=== PATIENT | male | born 1950 | race Caucasian/White ===

== ENCOUNTER → 2018-10-10 | Outpatient (CLI) | payer MEDICARE ==
--- NOTE | 2018-10-10 14:26 | REP ---
CERVICAL SPINE SERIES: Seven views of the cervical spine are performed. There is no compression identified. I cannot see the T1 vertebral body and its relationship to C7. There is slight anterior listhesis of C6 on 7 which is fixed with flexion and extension. There is mild spurring of C4-C7 with mild disc space narrowing and subchondral sclerosis at C5-6 and C6-7. There is mild posterior osteophytic ridging at C5-6 and C6-7. There is diffuse narrowing and sclerosis of the posterior facet joints. I do not see significant neural foraminal narrowing radiographically. Vascular calcifications are seen bilaterally in the soft tissues of the neck. IMPRESSION: Degenerative changes as discussed in detail above. Further evaluation may be made with MRI. Electronically Signed by Korey Amin MD 10/12/2018 10:20 A
== END ==
LOC: M SMT 13:13
PROVIDERS: ATTEND Physician Assistant Medical
DX: M50.322 Other cervical disc degeneration at C5-C6 level (principal); M50.323 Other cervical disc degeneration at C6-C7 level; G62.9 Polyneuropathy, unspecified
CPT/HCPCS: 72052; G0463

== ENCOUNTER → 2018-10-15 | Outpatient (REF) | payer MEDICARE ==
[~2018-10-15] MED LIST: ASPI81TA85 PO; COQ-100C5 PO; CRES10TA PO; FLOM0.4C39 PO; JANU100T PO; JARD1TAB PO; LISI-542 PO; METF500T13 PO; NORT10CA2 PO; VIAG100T PO; XALA0.007 OU
[2018-10-15 10:03] LABS: BASO % 0.4 % (0.0-1.0); EOS # 0.1 10^3/uL (0.0-0.50); EOS % 2.3 % (0.0-3.0); HEMATOCRIT 51.5 % (42.0-52.0); HEMOGLOBIN 17.7 g/dl (13.5-17.5); LYMPH # 1.5 10^3/uL (1.5-4.5); LYMPH % 26.5 % (24.0-44.0); MEAN CORPUSCULAR HEMOGLOBIN 33.3 pg (27.0-33.0); MEAN CORPUSCULAR HGB CONC 34.4 g/dl (32.0-36.5); MEAN CORPUSCULAR VOLUME 96.8 fl (80.0-96.0); MONO # 0.6 10^3/uL (0.0-0.8); NEUTROPHILS # 3.4 10^3/uL (1.8-7.7); NEUTROPHILS % 60.4 % (36.0-66.0); PLATELET COUNT, AUTOMATED 128 10^3/uL (150-450); RED BLOOD COUNT 5.32 10^6/uL (4.30-6.10); WHITE BLOOD COUNT 5.6 10^3/uL (4.0-10.0)
[2018-10-15 10:35] LABS: ALBUMIN 3.8 GM/DL (3.2-5.2); ALT/SGPT 23 U/L (12-78); BILIRUBIN,TOTAL 0.9 MG/DL (0.2-1.0); BLOOD UREA NITROGEN 27 MG/DL (7-18); CALCIUM LEVEL 8.4 MG/DL (8.8-10.2); CARBON DIOXIDE LEVEL 28 MEQ/L (21-32); CHLORIDE LEVEL 106 MEQ/L (98-107); CHOLESTEROL LEVEL 129 MG/DL (<200); CHOLESTEROL RISK RATIO 3.794 (<5); FREE T4 1.14 NG/DL (0.76-1.46); GLOMERULAR FILTRATION RATE > 60.0 (>49); GLUCOSE, FASTING 150 MG/DL (70-100); HDL CHOLESTEROL 34 MG/DL (>40); LDL CHOLESTEROL 68 MG/DL (<100); NON-HDL-C 95 MG/DL; POTASSIUM SERUM 4.6 MEQ/L (3.5-5.1); SODIUM LEVEL 140 MEQ/L (136-145); THYROID STIMULATING HORMONE 0.288 uIU/ML (0.358-3.740); TOTAL PROTEIN 6.9 GM/DL (6.4-8.2); TRIGLYCERIDES LEVEL 133 MG/DL (<150)
[2018-10-15 11:36] LABS: HEMOGLOBIN A1c 8.2 %
== END ==
LOC: M SFHCPLAZ 07:58
PROVIDERS: ATTEND Physician Assistant Medical
DX: I25.10 Atherosclerotic heart disease of native coronary artery without angina pectoris (principal); E11.610 Type 2 diabetes mellitus with diabetic neuropathic arthropathy; E78.2 Mixed hyperlipidemia; E04.1 Nontoxic single thyroid nodule

== ENCOUNTER → 2018-11-12 | Outpatient (REF) | payer MEDICARE ==
[2018-11-12 13:53] LABS: ALBUMIN 3.8 GM/DL (3.2-5.2); ALT/SGPT 27 U/L (12-78); BILIRUBIN,TOTAL 0.4 MG/DL (0.2-1.0); BLOOD UREA NITROGEN 20 MG/DL (7-18); CALCIUM LEVEL 8.9 MG/DL (8.8-10.2); CARBON DIOXIDE LEVEL 28 MEQ/L (21-32); CHLORIDE LEVEL 107 MEQ/L (98-107); FREE T4 1.11 NG/DL (0.76-1.46); GLOMERULAR FILTRATION RATE > 60.0 (>49); GLUCOSE, FASTING 141 MG/DL (70-100); POTASSIUM SERUM 4.2 MEQ/L (3.5-5.1); SODIUM LEVEL 141 MEQ/L (136-145); THYROID STIMULATING HORMONE 0.327 uIU/ML (0.358-3.740); TOTAL PROTEIN 6.9 GM/DL (6.4-8.2)
[2018-11-12 14:21] LABS: HEMOGLOBIN A1c 7.7 %
== END ==
LOC: M SFHCPLAZ 11:34
PROVIDERS: ATTEND Physician Assistant Medical
DX: D75.1 Secondary polycythemia (principal); E11.610 Type 2 diabetes mellitus with diabetic neuropathic arthropathy; E05.00 Thyrotoxicosis with diffuse goiter without thyrotoxic crisis or storm; Z12.5 Encounter for screening for malignant neoplasm of prostate
CPT/HCPCS: 36415; 80053; 82668; 83036; 84439; 84443; G0103; G0463

== ENCOUNTER → 2018-11-22 | Outpatient (CLI) | payer MEDICARE ==
[2018-11-22 11:42] VITALS: BP 116/70
--- NOTE | 2018-11-24 22:49 | REP ---
Ultrasound-guided right lobe thyroid biopsy This procedure was performed by JOE Horner, under the direct supervision of Dr. Amin. The risks and the benefits of the procedure were explained to the patient and informed consent was obtained both verbally and written. Directly prior to the start of the procedure, a formal time out was completed in the procedure room. Both of the nodules in the right thyroid were localized using ultrasound guidance. The skin was prepped and draped in a sterile fashion. 2 ml of 1% lidocaine was used as a local anesthetic over the medial right thyroid nodule. Using ultrasound guidance 4 fine-needle aspirations were obtained using 25 gauge needles of the medial thyroid nodule. Under ultrasound guidance another 2 ml of 1% lidocaine was used as a local anesthetic over the lateral right thyroid nodule. Using ultrasound guidance 4 fine-needle aspirations were obtained using 25 gauge needles of the lateral thyroid nodule. The patient tolerated the procedure well and there were no immediate complications. After the appropriate amount of monitored convalescence the patient was discharged from the department. Reviewed by JOE Horner 11/22/2018 04:05 P Electronically Signed by Korey Amin MD 11/24/2018 10:40 P
== END ==
LOC: M IRPRO 11:04
PROVIDERS: ATTEND Physician Assistant Medical
DX: E04.1 Nontoxic single thyroid nodule (principal)

== ENCOUNTER 2019-05-22 02:48 | Emergency (ER) | payer MEDICARE ==
[~2019-05-22] VITALS: Ht 185.4 cm; Wt 111.4 kg
[2019-05-22 03:38] LABS: BASO % 0.5 % (0.0-1.0); EOS # 0.2 10^3/uL (0.0-0.5); EOS % 2.7 % (0.0-3.0); HEMOGLOBIN 17.1 g/dl (13.5-17.5); LYMPH # 2.4 10^3/uL (1.5-5.0); LYMPH % 41.8 % (24.0-44.0); MEAN CORPUSCULAR HEMOGLOBIN 34.3 pg (27.0-33.0); MEAN CORPUSCULAR HGB CONC 34.9 g/dl (32.0-36.5); MEAN CORPUSCULAR VOLUME 98.4 fl (80.0-96.0); MONO # 0.5 10^3/uL (0.0-0.8); MONO % 9.6 % (0.0-5.0); NEUTROPHILS # 2.6 10^3/uL (1.5-8.5); PLATELET COUNT, AUTOMATED 119 10^3/uL (150-450); RED BLOOD COUNT 4.98 10^6/uL (4.30-6.10); WHITE BLOOD COUNT 5.7 10^3/uL (4.0-10.0)
--- NOTE | 2019-05-22 03:52 | REPVR ---
PROCEDURE INFORMATION: Exam: CT Head Without Contrast Exam date and time: 05/22/2019 3:10 AM Age: 68 years old Clinical indication: Altered mental status/memory loss; Additional info: AMS TECHNIQUE: Imaging protocol: Computed tomography of the head without contrast. Radiation optimization: All CT scans at this facility use at least one of these dose optimization techniques: automated exposure control; mA and/or kV adjustment per patient size (includes targeted exams where dose is matched to clinical indication); or iterative reconstruction. COMPARISON: No relevant prior studies available. FINDINGS: Brain: Mild decreased attenuation of the supratentorial white matter is likely secondary to chronic microvascular ischemia. No acute intracranial hemorrhage. Ventricles: Ventricular and subarachnoid spaces are age appropriate. Bones/joints: Unremarkable. No acute fracture. Sinuses: Visualized sinuses are unremarkable. No fluid levels. Mastoid air cells: Visualized mastoid air cells are well aerated. Soft tissues: Unremarkable. Vasculature: Intracranial vascular calcification. IMPRESSION: No acute intracranial abnormality. Electronically signed by: Shalom Nur On 05/22/2019 03:51:22 AM
[2019-05-22 04:12] LABS: ALBUMIN 3.3 GM/DL (3.2-5.2); ALT/SGPT 48 U/L (12-78); BILIRUBIN,DIRECT < 0.1 MG/DL (0.0-0.2); BILIRUBIN,TOTAL 0.3 MG/DL (0.2-1.0); BLOOD UREA NITROGEN 21 MG/DL (7-18); CALCIUM LEVEL 8.4 MG/DL (8.8-10.2); CARBON DIOXIDE LEVEL 22 MEQ/L (21-32); CHLORIDE LEVEL 109 MEQ/L (98-107); CK-MB VALUE MASS 1.4 NG/ML (<3.6); CPK CREATINE PHOSPHOKINASE 122 U/L (39-308); CREATININE FOR GFR 1.33 MG/DL (0.70-1.30); GLOMERULAR FILTRATION RATE 56.8 (>49); GLUCOSE, FASTING 246 MG/DL (70-100); MB/CK RELATIVE INDEX 1.15 (< OR =4); POTASSIUM SERUM 3.9 MEQ/L (3.5-5.1); SODIUM LEVEL 143 MEQ/L (136-145); TOTAL PROTEIN 6.4 GM/DL (6.4-8.2); TROPONIN I < 0.02 NG/ML (< 0.10)
[2019-05-22] MEDS ORDERED: NS 1,000 ML IV ONE (04:15)
[2019-05-22 06:02] VITALS: BP 155/77
--- NOTE | 2019-05-22 18:36 | ECGEPIP ---
[facility] - ED Test Date: 2019-05-22 Pat Name: LETTY ADAME Department: Room: - Gender: Male [employer]: : [id number] Requested By: AIDAN CLEMENT Order Number: [id number] Reading MD: Ernst Maciel Measurements Intervals [place] Rate: 64 P: 68 NE: 205 QRS: 65 QRSD: 113 T: 57 QT: 435 QTc: 452 Interpretive Statements SINUS RHYTHM MODERATE INTRAVENTRICULAR CONDUCTION DELAY BENIGN EARLY REPOLARIZATION NO PRIORS FOR COMPARISON Electronically Signed on 05-22-2019 18:35:34 EST by Ernst Maciel
== END 2019-05-22 06:07 | disposition home or self-care (01) ==
LOC: M ED 02:48 → EDBD 02:48 → M ED 06:07
DX: F10.120 Alcohol abuse with intoxication, uncomplicated (principal); E86.0 Dehydration; E11.9 Type 2 diabetes mellitus without complications; I10 Essential (primary) hypertension; N40.0 Benign prostatic hyperplasia without lower urinary tract symptoms; Z79.84 Long term (current) use of oral hypoglycemic drugs; Z79.82 Long term (current) use of aspirin; Z79.899 Other long term (current) drug therapy
CPT/HCPCS: 70450; 80048; 80076; 82140; 82550; 82553; 83605; 84443; 84484; 85025; 93005; 93041; 94760; 96360; 96361; 99285; G0480